=== PATIENT | male | born 1985 | race African-American/Black ===

== ENCOUNTER 2017-12-30 18:56 | Emergency (ER) | payer OTHER ==
[~2017-12-30] VITALS: Ht 182.9 cm; Wt 122.5 kg
[~2017-12-30 18:56] MED LIST: ANTIVERT25 MG PO; VENTOLIN HFA 1818 GM INH
[2017-12-30 20:18] VITALS: BP 131/98
== END 2017-12-30 20:18 | disposition home or self-care (01) ==
LOC: ER 18:56
DX: Z77.098 Contact with and (suspected) exposure to other hazardous, chiefly nonmedicinal, chemicals (principal); J45.909 Unspecified asthma, uncomplicated